=== PATIENT | female | born 1960 | race Caucasian/White ===

== ENCOUNTER → 2018-05-11 08:23 | Outpatient (CLI) | payer BC, SELFPAY ==
--- NOTE | 2018-05-11 08:27 | RAD_ITS ---
STUDY: X-RAY - LEFT KNEE REASON FOR EXAM: Female, 57 years old. Chronic pain TECHNIQUE: 2 view(s) of the knee. COMPARISON: None. FINDINGS: Normal visualized distal femur. Normal visualized proximal tibia and fibula. Normal proximal tibiofibular articulation. There is severe degenerative arthrosis of the medial femorotibial compartment with severe joint space narrowing. There is mild degenerative arthrosis of the lateral femorotibial compartment. There is severe degenerative arthrosis of the patellofemoral articulation. The soft tissue structures are unremarkable. RAD/Knee 1 or 2 Views IMPRESSION: Degenerative arthrosis. Electronically Signed: Elias Handy MD at 16:36 EDT , Service support ,
--- NOTE | 2018-05-11 08:27 | RAD_ITS ---
STUDY: X-RAY - RIGHT KNEE REASON FOR EXAM: Female, 57 years old. Chronic pain TECHNIQUE: 2 view(s) of the knee. COMPARISON: None. FINDINGS: Normal visualized distal femur. There is a fixation plate of the lateral aspect of the proximal tibial metaphysis and epiphysis Normal proximal tibiofibular articulation. There is moderate degenerative arthrosis of the medial femorotibial compartment with moderate joint space narrowing. There is severe degenerative arthrosis of the lateral femorotibial compartment with severe joint space narrowing. There is severe degenerative arthrosis of the patellofemoral articulation. The soft tissue structures are unremarkable. RAD/Knee 1 or 2 Views IMPRESSION: Postsurgical and degenerative changes as detailed above. Electronically Signed: Elias Handy MD at 16:29 EDT , Service support ,
== END ==
PROVIDERS: Family Provider Internal Medicine; PCP Internal Medicine; Referring Provider Internal Medicine; Visit Provider Internal Medicine
DX: M25.561 Pain in right knee (principal); M25.562 Pain in left knee
CPT/HCPCS: 73560

== ENCOUNTER → 2024-10-04 | Outpatient (CLI) | payer MEDICARE, SELFPAY ==
--- NOTE | 2024-10-04 15:58 | BD_ITS ---
PROCEDURE: DEXA BONE DENSITY STUDY REASON FOR EXAM: F, age 64 y/o . Postmenopausal. TECHNIQUE: DEXA scan of the lumbar spine and both hips. COMPARISON: None. FINDINGS: Lumbar Spine (L1-L4): g/cm2 (0.836)/T-score (-2.0)/Z-score (-0.2) findings are suggestive of osteopenia with a moderate fracture risk. Left Femur Total: g/cm2 (0.963)/T-score (0.2)/Z-score (1.4) Left Femoral Neck: g/cm2 (0.737)/T-score (-1.0)/Z-score (0.5) Right Femur Total: g/cm2 (0.999)/T-score (0.5)/Z-score (1.7) Right Femoral Neck: g/cm2 (0.738)/T-score (-1.0)/Z-score (0.4) BD/Dexa Bone Density Study IMPRESSION: The patient is considered osteopenic as outlined below according to World [employer] (WHO) criteria with a moderate fracture risk. Reading Location: [facility]
== END | disposition home or self-care (01) ==
PROVIDERS: PCP Internal Medicine; Referring Provider Internal Medicine; Visit Provider Internal Medicine
DX: Z78.0 Asymptomatic menopausal state (principal)
CPT/HCPCS: 77080